=== PATIENT | female | born 1980 | race African-American/Black ===

== ENCOUNTER 2023-06-09 00:49 | Emergency (ER) | payer OTHER ==
[~2023-06-09] VITALS: Ht 170.2 cm; Wt 61.0 kg
[2023-06-09 01:02] VITALS: O2SAT 98
[2023-06-09 02:30] VITALS: BP 139/90
[2023-06-09] MEDS ORDERED: IBUPROFEN 600MG TABLET PO ONE (02:30)
[2023-06-09] MEDS ORDERED: IBUP-2029 MT (02:30)
[2023-06-09 03:12] VITALS: PULSE 96; RESP 18; TEMP 98.1
== END 2023-06-09 03:13 | disposition home or self-care (01) ==
LOC: ER 00:49
DX: M54.50 Low back pain, unspecified (principal); M25.562 Pain in left knee; Z88.0 Allergy status to penicillin; V49.59XA Passenger injured in collision with other motor vehicles in traffic accident, initial encounter; Y93.89 Activity, other specified; Y92.89 Other specified places as the place of occurrence of the external cause; Y99.8 Other external cause status
CPT/HCPCS: 72100; 73562; 81025; 99284